=== PATIENT | female | born 1990 | race Caucasian/White ===

== ENCOUNTER 2019-10-29 00:07 | Emergency (ER) | payer OTHER ==
[~2019-10-29] VITALS: Ht 170.2 cm; Wt 71.2 kg
[2019-10-29 00:15] VITALS: Ht 170.2 cm; Wt 71.2 kg
[2019-10-29 01:26] LABS: CALCIUM 9.1 mg/dL (8.5-10.1); CARBON DIOXIDE 25.6 mmol/L (21-32); CHLORIDE SERUM 105 mmol/L (98-107); CREATININE SERUM 0.8 mg/dL (0.6-1.0); GFR1 > 60 mL/min; GLUCOSE SERUM 98 mg/dL (74-106); POTASSIUM SERUM 3.8 mmol/L (3.5-5.1); SODIUM SERUM 142 mmol/L (136-145)
[2019-10-29 01:27] LABS: BASOPHIL % 0.7 % (0-2); RED CELL DISTRIBUTION WIDTH 11.6 % (11.5-14.5)
[2019-10-29 01:28] LABS: PLATELET COUNT 466 x10^3mcL (130-400)
[2019-10-29 01:35] LABS: AMPHETAMINE QUAL UR NONE DETECTED (See below)
[2019-10-29 01:35] LABS: ALBUMIN 4.3 g/dL (3.4-5.0); ALKALINE PHOSPHATASE 39 U/L (46-116); ALT/SGPT 17 U/L (14-59); AST/SGOT 8 U/L (15-37); BILIRUBIN TOTAL 0.33 mg/dL (0.20-1.00); TOTAL PROTEIN, SERUM 7.5 g/dL (6.4-8.2)
[2019-10-29 21:32] VITALS: BP 120/73
== END 2019-10-29 21:32 | disposition home or self-care (01) ==
LOC: ED 00:07
PROVIDERS: Emergency Medicine
DX: T45.0X2A Poisoning by antiallergic and antiemetic drugs, intentional self-harm, initial encounter (principal); T43.592A Poisoning by other antipsychotics and neuroleptics, intentional self-harm, initial encounter; T43.222A Poisoning by selective serotonin reuptake inhibitors, intentional self-harm, initial encounter; R11.15 Cyclical vomiting syndrome unrelated to migraine; F32.9 Major depressive disorder, single episode, unspecified; F41.9 Anxiety disorder, unspecified; F17.210 Nicotine dependence, cigarettes, uncomplicated; J45.909 Unspecified asthma, uncomplicated; Z90.49 Acquired absence of other specified parts of digestive tract; Y92.89 Other specified places as the place of occurrence of the external cause
CPT/HCPCS: 99406; G0480; J1630; J2405; J2765; J7030

== ENCOUNTER 2019-11-24 18:02 | Emergency (ER) | payer OTHER ==
[~2019-11-24] VITALS: Ht 165.1 cm; Wt 68.9 kg
[2019-11-24 18:10] VITALS: Ht 165.1 cm; Wt 68.9 kg
[2019-11-24 18:59] LABS: BASOPHIL % 0.1 % (0-2); PLATELET COUNT 396 x10^3mcL (130-400); RED CELL DISTRIBUTION WIDTH 12.3 % (11.5-14.5)
[2019-11-24 19:07] LABS: CALCIUM 9.5 mg/dL (8.5-10.1); CARBON DIOXIDE 24.9 mmol/L (21-32); CREATININE SERUM 1.2 mg/dL (0.6-1.0); POTASSIUM SERUM 3.1 mmol/L (3.5-5.1)
[2019-11-24 19:11] LABS: ALBUMIN 4.9 g/dL (3.4-5.0); BILIRUBIN TOTAL 1.23 mg/dL (0.20-1.00)
[2019-11-24 19:13] LABS: TOTAL PROTEIN, SERUM 8.3 g/dL (6.4-8.2)
[2019-11-24 20:46] VITALS: BP 102/69
[2019-11-24 20:59] LABS: UA SPECIFIC GRAVITY 1.025 (1.005-1.035); microscopic required? YES; urine erythrocyte NEGATIVE (NEGATIVE)
[2019-11-24 21:14] LABS: AMPHETAMINE QUAL UR NONE DETECTED (See below)
== END 2019-11-24 21:05 | disposition home or self-care (01) ==
LOC: ED 18:02
PROVIDERS: Emergency Medicine
DX: F12.99 Cannabis use, unspecified with unspecified cannabis-induced disorder (principal); F32.9 Major depressive disorder, single episode, unspecified; J45.909 Unspecified asthma, uncomplicated; F17.210 Nicotine dependence, cigarettes, uncomplicated; Z71.6 Tobacco abuse counseling; Z90.49 Acquired absence of other specified parts of digestive tract
CPT/HCPCS: 99406; J1630; J2060; J7030; Q0092

== ENCOUNTER 2020-01-01 11:16 | Emergency (ER) | payer OTHER ==
[~2020-01-01] VITALS: Ht 170.2 cm; Wt 70.3 kg
[2020-01-01 11:23] VITALS: Ht 170.2 cm; Wt 70.3 kg
[2020-01-01 11:53] LABS: BASOPHIL % 0.3 % (0-2)
[2020-01-01 11:55] LABS: PLATELET COUNT 410 x10^3mcL (130-400)
[2020-01-01 12:21] LABS: CALCIUM 9.8 mg/dL (8.5-10.1); CARBON DIOXIDE 19.9 mmol/L (21-32); CHLORIDE SERUM 103 mmol/L (98-107); GFR1 > 60 mL/min; GLUCOSE SERUM 171 mg/dL (74-106); POTASSIUM SERUM 3.7 mmol/L (3.5-5.1); SODIUM SERUM 140 mmol/L (136-145)
[2020-01-01 12:25] LABS: ALBUMIN 4.7 g/dL (3.4-5.0); ALKALINE PHOSPHATASE 38 U/L (46-116); ALT/SGPT 15 U/L (14-59); AST/SGOT 12 U/L (15-37); BILIRUBIN TOTAL 0.7 mg/dL (0.20-1.00); LIPASE 91 IU/L (73-393); TOTAL PROTEIN, SERUM 7.8 g/dL (6.4-8.2)
[2020-01-01 13:11] LABS: UA SPECIFIC GRAVITY 1.025 (1.005-1.035); microscopic required? YES; urine erythrocyte NEGATIVE (NEGATIVE)
[2020-01-01 14:19] VITALS: BP 127/67
== END 2020-01-01 14:19 | disposition home or self-care (01) ==
LOC: ED 11:16
PROVIDERS: Emergency Medicine
DX: R11.15 Cyclical vomiting syndrome unrelated to migraine (principal); J45.909 Unspecified asthma, uncomplicated
CPT/HCPCS: J0780; J1200; J1630; J2060; J7030

== ENCOUNTER 2020-01-03 06:58 | Emergency (ER) | payer OTHER ==
[~2020-01-03] VITALS: Ht 170.2 cm; Wt 70.3 kg
[2020-01-03 07:35] VITALS: Ht 170.2 cm; Wt 70.3 kg
[2020-01-03 08:55] VITALS: BP 143/95
== END 2020-01-03 08:55 | disposition home or self-care (01) ==
LOC: ED 06:58
DX: R11.15 Cyclical vomiting syndrome unrelated to migraine (principal); F12.90 Cannabis use, unspecified, uncomplicated; J45.909 Unspecified asthma, uncomplicated
CPT/HCPCS: J2405

== ENCOUNTER 2020-01-03 13:20 | Emergency (ER) | payer OTHER ==
[~2020-01-03] VITALS: Ht 170.2 cm; Wt 70.3 kg
[2020-01-03 13:49] VITALS: Ht 170.2 cm; Wt 70.3 kg
[2020-01-03 14:36] VITALS: BP 148/86
== END 2020-01-03 14:36 | disposition home or self-care (01) ==
LOC: ED 13:20
DX: R11.15 Cyclical vomiting syndrome unrelated to migraine (principal); J45.909 Unspecified asthma, uncomplicated; Z13.9 Encounter for screening, unspecified

== ENCOUNTER 2020-01-06 06:40 | Emergency (ER) | payer OTHER ==
[~2020-01-06] VITALS: Ht 170.2 cm; Wt 70.3 kg
[2020-01-06 06:51] VITALS: Ht 170.2 cm; Wt 70.3 kg
[2020-01-06 08:46] LABS: BASOPHIL % 0.4 % (0-2); PLATELET COUNT 273 x10^3mcL (130-400); RED CELL DISTRIBUTION WIDTH 11.8 % (11.5-14.5)
[2020-01-06 08:48] LABS: ALBUMIN 3.7 g/dL (3.4-5.0); ALKALINE PHOSPHATASE 28 U/L (46-116); ALT/SGPT 47 U/L (14-59); AST/SGOT 13 U/L (15-37); BILIRUBIN TOTAL 0.83 mg/dL (0.20-1.00); CARBON DIOXIDE 28.4 mmol/L (21-32); CHLORIDE SERUM 99 mmol/L (98-107); CREATININE SERUM 0.7 mg/dL (0.6-1.0); GFR1 > 60 mL/min; GLUCOSE SERUM 93 mg/dL (74-106); LIPASE 91 IU/L (73-393); SODIUM SERUM 136 mmol/L (136-145); TOTAL PROTEIN, SERUM 6.2 g/dL (6.4-8.2)
[2020-01-06 08:51] LABS: POTASSIUM SERUM 2.8 mmol/L (3.5-5.1)
[2020-01-06 10:13] LABS: AMPHETAMINE QUAL UR NONE DETECTED (See below)
[2020-01-06 11:02] LABS: UA SPECIFIC GRAVITY <=1.005 (1.005-1.035); microscopic required? YES; urine erythrocyte 2+ (NEGATIVE)
[2020-01-06 14:17] VITALS: BP 122/86
== END 2020-01-06 14:17 | disposition home or self-care (01) ==
LOC: ED 06:40
PROVIDERS: Emergency Medicine
DX: K29.00 Acute gastritis without bleeding (principal); F12.188 Cannabis abuse with other cannabis-induced disorder; E87.6 Hypokalemia
CPT/HCPCS: J1630; J2060; J3480; J3490; J7030

== ENCOUNTER 2020-01-22 13:38 | Emergency (ER) | payer OTHER ==
[~2020-01-22] VITALS: Ht 170.2 cm; Wt 59.9 kg
[2020-01-22 13:43] VITALS: Ht 170.2 cm; Wt 59.9 kg
[2020-01-22] MEDS ORDERED: PROZAC20 MG PO (15:04)
[2020-01-22 15:40] LABS: BASOPHIL % 0.4 % (0-2); RED CELL DISTRIBUTION WIDTH 12.1 % (11.5-14.5)
[2020-01-22 15:41] LABS: PLATELET COUNT 435 x10^3mcL (130-400)
[2020-01-22 15:53] LABS: CALCIUM 9.2 mg/dL (8.5-10.1); CARBON DIOXIDE 20.1 mmol/L (21-32); CHLORIDE SERUM 102 mmol/L (98-107); CREATININE SERUM 0.9 mg/dL (0.6-1.0); GFR1 > 60 mL/min; GLUCOSE SERUM 139 mg/dL (74-106); POTASSIUM SERUM 3.7 mmol/L (3.5-5.1); SODIUM SERUM 138 mmol/L (136-145)
[2020-01-22 16:02] LABS: ALBUMIN 4.6 g/dL (3.4-5.0); ALKALINE PHOSPHATASE 41 U/L (46-116); ALT/SGPT 22 U/L (14-59); AST/SGOT 12 U/L (15-37); BILIRUBIN DIRECT 0.18 mg/dL (0.0-0.2); BILIRUBIN TOTAL 0.71 mg/dL (0.20-1.00); LIPASE 101 IU/L (73-393); TOTAL PROTEIN, SERUM 7.6 g/dL (6.4-8.2)
[2020-01-22 16:56] VITALS: BP 119/77
== END 2020-01-22 16:56 | disposition home or self-care (01) ==
LOC: ED 13:38
PROVIDERS: Student in an Organized Health Care Education/Training Program
DX: R11.15 Cyclical vomiting syndrome unrelated to migraine (principal); E86.0 Dehydration; J45.909 Unspecified asthma, uncomplicated
CPT/HCPCS: J1630; J2405; J7030

== ENCOUNTER 2020-01-25 07:27 | Inpatient (IN) | payer OTHER ==
[~2020-01-25] VITALS: Ht 170.2 cm; Wt 66.7 kg
[~2020-01-25 07:27] MED LIST: PROZAC20 MG PO
[2020-01-25 07:35] VITALS: Ht 170.2 cm; Wt 66.7 kg
[2020-01-25 08:24] LABS: BASOPHIL % 1.1 % (0-2)
[2020-01-25 08:37] LABS: ALBUMIN 4.6 g/dL (3.4-5.0); ALKALINE PHOSPHATASE 43 U/L (46-116); ALT/SGPT 66 U/L (14-59); AST/SGOT 26 U/L (15-37); BILIRUBIN TOTAL 0.62 mg/dL (0.20-1.00); CARBON DIOXIDE 30.5 mmol/L (21-32); CHLORIDE SERUM 98 mmol/L (98-107); GFR1 > 60 mL/min; GLUCOSE SERUM 99 mg/dL (74-106); LIPASE 125 IU/L (73-393); SODIUM SERUM 137 mmol/L (136-145); TOTAL PROTEIN, SERUM 7.8 g/dL (6.4-8.2)
[2020-01-25 09:15] LABS: MAGNESIUM 2.3 mg/dL (1.8-2.4); PHOSPHOROUS 2.5 mg/dL (2.5-4.9)
[2020-01-25 09:24] LABS: PLATELET COUNT 417 x10^3mcL (130-400)
[2020-01-25 09:34] LABS: POTASSIUM SERUM 2.9 mmol/L (3.5-5.1)
[2020-01-25 11:45] VITALS: BP 145/95
[2020-01-25 17:02] VITALS: BP 131/92
[2020-01-25 20:39] VITALS: BP 130/83
[2020-01-26 04:55] VITALS: BP 125/76
[2020-01-26 07:38] LABS: CALCIUM 8.7 mg/dL (8.5-10.1); CARBON DIOXIDE 25.8 mmol/L (21-32); CHLORIDE SERUM 102 mmol/L (98-107); CREATININE SERUM 0.7 mg/dL (0.6-1.0); GFR1 > 60 mL/min; GLUCOSE SERUM 79 mg/dL (74-106); POTASSIUM SERUM 3.8 mmol/L (3.5-5.1); SODIUM SERUM 137 mmol/L (136-145)
[2020-01-26 07:54] LABS: BASOPHIL % 0.4 % (0-2); PLATELET COUNT 314 x10^3mcL (130-400); RED CELL DISTRIBUTION WIDTH 11.9 % (11.5-14.5)
[2020-01-26 09:33] VITALS: BP 125/76
== END 2020-01-26 09:50 | disposition home or self-care (01) | DRG 241 ==
LOC: ED 07:27 → DU 09:03
PROVIDERS: Emergency Medicine; ADMIT Student in an Organized Health Care Education/Training Program; ATTEND Student in an Organized Health Care Education/Training Program
DX: K29.70 Gastritis, unspecified, without bleeding (principal); E87.6 Hypokalemia; F29 Unspecified psychosis not due to a substance or known physiological condition; J45.909 Unspecified asthma, uncomplicated; F41.9 Anxiety disorder, unspecified; R11.15 Cyclical vomiting syndrome unrelated to migraine; Z90.49 Acquired absence of other specified parts of digestive tract
CPT/HCPCS: G0378; J1200; J1630; J2060; J2405; J3480; J7030; J7040

== ENCOUNTER 2020-01-28 21:01 | Emergency (ER) | payer OTHER ==
[~2020-01-28] VITALS: Ht 170.2 cm; Wt 65.8 kg
[2020-01-28 21:11] VITALS: Ht 170.2 cm; Wt 65.8 kg
[2020-01-28 23:04] LABS: BASOPHIL % 1.2 % (0-2); PLATELET COUNT 477 x10^3mcL (130-400); RED CELL DISTRIBUTION WIDTH 11.9 % (11.5-14.5)
[2020-01-28 23:18] LABS: ALBUMIN 4.7 g/dL (3.4-5.0); ALKALINE PHOSPHATASE 39 U/L (46-116); ALT/SGPT 45 U/L (14-59); AST/SGOT 15 U/L (15-37); BILIRUBIN DIRECT 0.15 mg/dL (0.0-0.2); BILIRUBIN TOTAL 0.6 mg/dL (0.20-1.00); CALCIUM 10.2 mg/dL (8.5-10.1); CARBON DIOXIDE 23.8 mmol/L (21-32); CHLORIDE SERUM 95 mmol/L (98-107); CREATININE SERUM 0.8 mg/dL (0.6-1.0); GFR1 > 60 mL/min; GLUCOSE SERUM 104 mg/dL (74-106); LIPASE 125 IU/L (73-393); POTASSIUM SERUM 3.4 mmol/L (3.5-5.1); SODIUM SERUM 135 mmol/L (136-145)
[2020-01-29 02:13] VITALS: BP 147/88
== END 2020-01-29 02:13 | disposition home or self-care (01) ==
LOC: ED 21:01
PROVIDERS: Student in an Organized Health Care Education/Training Program
DX: R11.15 Cyclical vomiting syndrome unrelated to migraine (principal); E86.0 Dehydration
CPT/HCPCS: J1200; J1630